=== PATIENT | male | born 1975 | race Caucasian/White ===

== ENCOUNTER → 2017-03-01 | Outpatient (CLI) | payer OTHER ==
[~2017-03-01] MED LIST: ACETAMINOPHEN PR; ALDACTONE25 MG PO; ALPRAZOLAM PO; ALPRAZOLAM0.25 MG PO; AMITRIP PO; AMLODIPINE BESYL5 MG PO; ASPIRIN81 M2 PO; ASPIRIN81 MG PO; ATARAX PO; BACTRIM DS PO; BENADRYL25 MG PO; BRIMONIDINE5 ML OU; BUSPAR15 M2 PO; CARVEDILOL6.25 MG PO; COMBIVENT RESPIM4 GM INH; COREG6.25 M1 PO; COREG6.25 MG PO; COSOPT1 UNI1 OU; COZAAR25 MG PO; DICLOFENAC PO; ELIMITE60 GM TOP; FUROSEMIDE40 MG PO; GUAIFENESIN DM118 ML PO; K-DUR20 ME1 PO; K-DUR20 ME2 PO; K-TAB ER20 MEQ PO; KLOR-CON PO; LASIX PO; LATANOPROST2.5 ML OD; LEVAQUIN PO; LEVAQUIN750 M1 PO; LISINOPRIL5 MG PO; LORTAB 5/500 TA1 TA1 PO; LOSARTAN POTASS25 MG PO; NAPROSYN250 M1 PO; NEBULIZER1 PKT INH; NO MEDICATIONS; PAXIL PO; PEN-VEE K PO; PERPHEN PO; PHENERGAN12.5 MG/0. IM; PREDNISONE PO; PREDNISONE10 MG/DOSE PO; REMERON15 MG PO; SANTYL15 G1 TOP; SIMVASTATIN20 MG PO; SIMVASTATIN40 MG PO; SYMBICORT INH; TENORMIN50 MG PO; TESSALON PERLE100 M1 DOB; VALSARTAN40 MG PO; VISTARIL PO; XANAX0.5 MG PO; ZYPREXA PO
[2017-03-01 10:30] LABS: INR 1.7; PROTHROMBIN TIME (PATIENT) 18.4 SECONDS (10.0-11.7)
== END | disposition home or self-care (01) ==
LOC: CLAB 09:43
PROVIDERS: Internal Medicine Cardiovascular Disease
DX: I50.9 Heart failure, unspecified (principal); I42.7 Cardiomyopathy due to drug and external agent; Z95.811 Presence of heart assist device; Z79.899 Other long term (current) drug therapy; Z79.01 Long term (current) use of anticoagulants
CPT/HCPCS: 36415; 85610